=== PATIENT | male | born 1955 | race Two or more races ===

== ENCOUNTER 2021-01-18 08:51 | Day surgery (SDC) | payer OTHER ==
[~2021-01-18 08:51] MED LIST: TAMS0.4C PO
== END 2021-01-18 20:50 | disposition home or self-care (01) ==
LOC: CIR.AMB 08:51
PROVIDERS: ATTEND Colon & Rectal Surgery
DX: K64.8 Other hemorrhoids (principal); K64.4 Residual hemorrhoidal skin tags; Z20.822 Contact with and (suspected) exposure to COVID-19

== ENCOUNTER 2021-06-09 08:15 | Day surgery (SDC) | payer OTHER | END 2021-06-09 13:20 | disposition home or self-care (01) | LOC: AMB-ENDOS 08:15 | PROVIDERS: ATTEND Colon & Rectal Surgery | DX: D12.3 Benign neoplasm of transverse colon (principal); D12.5 Benign neoplasm of sigmoid colon; Z20.822 Contact with and (suspected) exposure to COVID-19; K64.1 Second degree hemorrhoids ==